=== PATIENT | male | born 1955 | race Caucasian/White ===

== ENCOUNTER → 2018-04-05 | Outpatient (CLI) | payer OTHER ==
[~2018-04-05] MED LIST: ACET-1603 PO; ALPR0.5T7 PO; ASPI-123 OR; ATOR20TA50 PO; FENO1TAB42 OR; FEXO24TA9 PO; FLUT1SPR5
[2018-04-05 13:40] LABS: Alanine Aminotransferase 31 U/L (16-61); Aspartate Aminotransferase 23 U/L (15-37); Bilirubin, Direct < 0.1 mg/dL (0-0.2); Cholesterol 298 mg/dL (< 200); Triglycerides 932 mg/dL (< 150)
[2018-04-05 13:42] LABS: Alkaline Phosphatase 79 U/L (45-117); Bilirubin, Total 0.3 mg/dL (0.2-1.0); HDL Cholesterol 30 mg/dL (40-59); Total Protein 8.4 g/dL (6.4-8.2)
== END | disposition home or self-care (01) ==
LOC: LAB 07:53
PROVIDERS: ATTEND Internal Medicine Cardiovascular Disease
DX: E78.5 Hyperlipidemia, unspecified (principal); K74.1 Hepatic sclerosis
CPT/HCPCS: 36415; 80061; 80076

== ENCOUNTER → 2018-07-05 | Outpatient (CLI) | payer OTHER ==
[2018-07-05 12:19] LABS: Cholesterol 140 mg/dL (< 200); HDL Cholesterol 45 mg/dL (40-59); LDL Cholesterol 74 mg/dL (< 100); Triglycerides 129 mg/dL (< 150)
== END | disposition home or self-care (01) ==
LOC: LAB 08:08
PROVIDERS: ATTEND Internal Medicine Cardiovascular Disease
DX: E78.5 Hyperlipidemia, unspecified (principal)
CPT/HCPCS: 36415; 80061

== ENCOUNTER → 2018-10-22 | Outpatient (CLI) | payer OTHER ==
[~2018-10-22] VITALS: Ht 177.8 cm; Wt 90.7 kg
== END | disposition home or self-care (01) ==
LOC: Rad HDHVI 08:27
PROVIDERS: ATTEND Internal Medicine Cardiovascular Disease
DX: I20.0 Unstable angina (principal); E78.2 Mixed hyperlipidemia
CPT/HCPCS: 78452; 93017; 96374; A9500

== ENCOUNTER → 2020-05-20 | Outpatient (CLI) | payer OTHER ==
[~2020-05-20] MED LIST changes: +FENO145T27 OR; -FENO1TAB42 OR; +FEXO24TA10 PO; -FEXO24TA9 PO
[2020-05-20 12:01] LABS: Basophils # (auto) 0.1 10 ^3/uL (0-0.2); Basophils % (auto) 0.7 % (0.0-2.0); Eosinophils # (auto) 0.3 10 ^3/uL (0-0.8); Eosinophils % (auto) 3.2 % (0.0-7.0); Hematocrit 45.5 % (41.0-53.0); Hemoglobin 15.3 g/dL (13.5-17.5); Lymphocytes # (auto) 1.7 10 ^3/uL (0.4-5.4); Lymphocytes % (auto) 16.2 % (10.0-50.0); Mean Corpuscular Hemoglobin 33.1 pg (28.0-32.0); Mean Corpuscular Hgb Conc. 33.5 g/dL (32.0-36.0); Mean Corpuscular Volume 98.7 fL (80.0-100.0); Monocytes # (auto) 0.7 10 ^3/uL (0-1.3); Monocytes % (auto) 6.4 % (0.0-12.0); Neutrophils # (auto) 7.5 10 ^3/uL (1.6-8.6); Neutrophils % (auto) 73.5 % (37.0-80.0); Platelet Count (auto) 274 10^3/uL (140-450); Red Blood Cells 4.61 10^6/uL (4.5-5.90); Red Cell Distribution Width 13.6 % (11.8-14.3); White Blood Cell 10.3 10^3/uL (4.4-10.8)
[2020-05-20 12:25] LABS: Free T4 (Free Thyroxine) 1.12 ng/dL (0.89-1.76); Prostate Specific Antigen 2.36 ng/mL (0.0-4.0)
[2020-05-20 12:27] LABS: BUN/Creatinine Ratio 13.5; Bilirubin, Total 0.4 mg/dL (0.2-1.0); Calcium 9.3 mg/dL (8.5-10.1); Total Protein 7.9 g/dL (6.4-8.2)
[2020-05-20 12:29] LABS: Urine Blood Negative /uL (Negative); Urine Specific Gravity 1.015 (1.001-1.035)
== END | disposition home or self-care (01) ==
LOC: LAB 08:34
PROVIDERS: ATTEND Internal Medicine Cardiovascular Disease
DX: C61 Malignant neoplasm of prostate (principal); D51.3 Other dietary vitamin B12 deficiency anemia; I10 Essential (primary) hypertension; E11.9 Type 2 diabetes mellitus without complications; E55.9 Vitamin D deficiency, unspecified; D64.9 Anemia, unspecified; R00.2 Palpitations; R53.1 Weakness; R30.0 Dysuria
CPT/HCPCS: 36415; 80053; 80061; 81003; 82306; 82607; 83036; 84153; 84403; 84439; 84443; 85025; 87086

== ENCOUNTER → 2020-09-15 | Outpatient (CLI) | payer OTHER | END | disposition home or self-care (01) | LOC: Rad HDHVI 07:56 | PROVIDERS: ATTEND Internal Medicine Cardiovascular Disease | DX: I08.8 Other rheumatic multiple valve diseases (principal); I50.33 Acute on chronic diastolic (congestive) heart failure; R00.2 Palpitations | CPT/HCPCS: 93306 ==

== ENCOUNTER → 2020-09-16 | Outpatient (CLI) | payer OTHER ==
[~2020-09-16] VITALS: Ht 177.8 cm; Wt 88.0 kg
== END | disposition home or self-care (01) ==
LOC: Rad HDHVI 12:48
PROVIDERS: ATTEND Internal Medicine Cardiovascular Disease
DX: E78.00 Pure hypercholesterolemia, unspecified (principal); Z95.2 Presence of prosthetic heart valve; Z82.49 Family history of ischemic heart disease and other diseases of the circulatory system
CPT/HCPCS: 78452; 93017; 96374; A9500

== ENCOUNTER → 2022-04-26 | Outpatient (CLI) | payer OTHER ==
[~2022-04-26] VITALS: Ht 177.8 cm; Wt 88.5 kg
== END | disposition home or self-care (01) ==
LOC: Rad HDHVI 08:05
PROVIDERS: ATTEND Internal Medicine Cardiovascular Disease
DX: R07.9 Chest pain, unspecified (principal); R42 Dizziness and giddiness; R06.02 Shortness of breath; E78.5 Hyperlipidemia, unspecified; F17.210 Nicotine dependence, cigarettes, uncomplicated; Z79.899 Other long term (current) drug therapy; Z82.49 Family history of ischemic heart disease and other diseases of the circulatory system
CPT/HCPCS: 78452; 93017; 96374; A9500

== ENCOUNTER → 2022-04-27 | Outpatient (CLI) | payer OTHER ==
[2022-04-27 09:58] LABS: Urine Blood Negative /uL (Negative)
[2022-04-27 09:59] LABS: Basophils # (auto) 0.1 10 ^3/uL (0-0.2); Basophils % (auto) 0.7 % (0.0-2.0); Eosinophils # (auto) 0.3 10 ^3/uL (0-0.8); Eosinophils % (auto) 2.6 % (0.0-7.0); Hematocrit 44.5 % (41.0-53.0); Hemoglobin 14.8 g/dL (13.5-17.5); Lymphocytes # (auto) 1.8 10 ^3/uL (0.4-5.4); Lymphocytes % (auto) 13.3 % (10.0-50.0); Mean Corpuscular Hemoglobin 32.4 pg (28.0-32.0); Mean Corpuscular Hgb Conc. 33.3 g/dL (32.0-36.0); Mean Corpuscular Volume 97.6 fL (80.0-100.0); Monocytes # (auto) 0.9 10 ^3/uL (0-1.3); Monocytes % (auto) 6.7 % (0.0-12.0); Neutrophils # (auto) 10.1 10 ^3/uL (1.6-8.6); Neutrophils % (auto) 76.7 % (37.0-80.0); Nucleated Red Blood Cells % 0.1 %; Red Blood Cells 4.56 10^6/uL (4.5-5.90); Red Cell Distribution Width 13.9 % (11.8-14.3); White Blood Cell 13.2 10^3/uL (4.4-10.8)
[2022-04-27 10:08] LABS: Albumin 3.8 g/dL (3.4-5.0); Potassium 3.8 mmol/L (3.5-5.1)
[2022-04-27 10:15] LABS: Bilirubin, Total 0.5 mg/dL (0.2-1.0); Total Protein 7.8 g/dL (6.4-8.2)
[2022-04-27 10:19] LABS: Free T4 (Free Thyroxine) 1.08 ng/dL (0.89-1.76); Prostate Specific Antigen 2.16 ng/mL (0.0-4.0)
== END | disposition home or self-care (01) ==
LOC: Rad HDHVI 08:05
PROVIDERS: ATTEND Internal Medicine Cardiovascular Disease
DX: I25.5 Ischemic cardiomyopathy (principal); E55.9 Vitamin D deficiency, unspecified; N39.0 Urinary tract infection, site not specified
CPT/HCPCS: 36415; 80053; 80061; 81003; 82306; 82607; 83036; 84153; 84403; 84439; 84443; 85025; 87086; 93306

== ENCOUNTER → 2023-04-23 | Outpatient (CLI) | payer OTHER | END | disposition home or self-care (01) | LOC: Rad HDHVI 09:06 | PROVIDERS: ATTEND Internal Medicine Cardiovascular Disease | DX: I70.203 Unspecified atherosclerosis of native arteries of extremities, bilateral legs (principal); G45.9 Transient cerebral ischemic attack, unspecified | CPT/HCPCS: 93880; 93925 ==

== ENCOUNTER → 2024-05-28 | Outpatient (CLI) | payer OTHER ==
--- NOTE | 2024-05-28 14:00 | DVHSR ---
APPROVED REPORT EXAM: Two-dimensional and M-mode echocardiogram with Doppler and color Doppler. DIMENSIONS LVDd4.9 (3.8-5.7cm)LA (2D)3.6 (1.9-4.0cm)Aortic Root3.5 (2.0-3.7cm) LVDs3.3 (2.5-4.0cm)LA (MM) (1.9-4.0cm)Aortic Cusp Exc1.7 (1.5-2.0cm) EF (%) 60.0 (55-70%)Rt. Atrium3.5 (1.9-4.0cm)Asc. Aorta cm IVSd1.1 (0.7-1.1cm)RV (D)3.7 (1.8-2.4cm) PWd1.1 (0.7-1.1cm) Mitral Valve MitralMitral Stenosis E wave0.79m/sMV Mean GR.mmHg A wave0.72m/sMV Peak GR.mmHg E/A ratio1.12D MVAcm2 DECEL [id number] 1/2 [place] Aortic Valve Aortic ValveAortic Stenosis V10.91m/Michel Mean GR.5mmHg V21.64m/Michel Peak GR.11mmHg LVOT Diameter2.1 (1.8-2.4cm)Doppler AVA1.92cm2 AI P 1/2 Esdv457.70ms Pulmonic Valve V20.80m/s Tricuspid Valve TR Velocity2.59m/s [id number] LEFT VENTRICLE The left ventricle is normal size. The left ventricle is normal in structure and function. The Ejection Fraction is within normal limits. RIGHT VENTRICLE The right ventricle is normal size. ATRIA The left atrial size is normal. The right atrium size is normal. The interatrial septum is intact with no evidence for an atrial septal defect. MITRAL VALVE The mitral valve is normal in structure. Mitral regurgitation is mild. PULMONIC VALVE The pulmonic valve is not well visualized. TRICUSPID VALVE The tricuspid valve is grossly normal. There is mild tricuspid regurgitation. Right ventricular systolic pressure is 30-40 mmHg. AORTIC VALVE The aortic valve opens well. The aortic valve is mildly sclerotic. There is mild aortic regurgitation. GREAT VESSELS The aortic root is normal size. PERICARDIAL EFFUSION There is no pericardial effusion. Other Information Technically limited study due to body habitus. Conclusion EF >55% MILD TR MILD AI
== END | disposition home or self-care (01) ==
LOC: Rad HDHVI 08:08
PROVIDERS: ATTEND Internal Medicine Cardiovascular Disease
DX: I08.3 Combined rheumatic disorders of mitral, aortic and tricuspid valves (principal); I10 Essential (primary) hypertension; I25.5 Ischemic cardiomyopathy
CPT/HCPCS: 93306

== ENCOUNTER → 2024-06-04 | Outpatient (CLI) | payer OTHER ==
[~2024-06-04] VITALS: Ht 177.8 cm; Wt 90.7 kg
== END | disposition home or self-care (01) ==
LOC: Rad HDHVI 08:16
PROVIDERS: ATTEND Internal Medicine Cardiovascular Disease
DX: I11.0 Hypertensive heart disease with heart failure (principal); I50.43 Acute on chronic combined systolic (congestive) and diastolic (congestive) heart failure; I25.10 Atherosclerotic heart disease of native coronary artery without angina pectoris; I25.5 Ischemic cardiomyopathy; E78.00 Pure hypercholesterolemia, unspecified; E11.9 Type 2 diabetes mellitus without complications; E24.9 Cushing's syndrome, unspecified; F17.210 Nicotine dependence, cigarettes, uncomplicated; R07.89 Other chest pain; R06.02 Shortness of breath; Z82.49 Family history of ischemic heart disease and other diseases of the circulatory system
CPT/HCPCS: 78452; 93017; 96374; A9500